=== PATIENT | male | born 1985 | race Caucasian/White ===

== ENCOUNTER 2017-05-05 03:22 | Emergency (ER) | payer MEDICARE, MEDICAID ==
[~2017-05-05] VITALS: Ht 182.9 cm; Wt 136.6 kg
[~2017-05-05 03:22] MED LIST: BENZ2TAB7 PO; CLON0.1T20 PO; CLON0.2T PO; CLON0.5T4 PO; COL100C PO; LAMO150T PO; NICO-687 TD; OLAN10TA19 PO; PRAZ1CAP5 PO; VENL150T3 PO; ZOLP5TAB8 PO
[2017-05-05 04:23] LABS: BASOPHILS % (AUTO) 0.2 % (0-1); EOSINOPHILS # (AUTO) 0.2 X10'3 (0-0.9); EOSINOPHILS % (AUTO) 1.8 % (0-6); HEMATOCRIT 42.9 % (42.0-52.0); HEMOGLOBIN 14.7 g/dl (14.0-17.9); LYMPHOCYTES # (AUTO) 3.3 X10'3 (1.1-4.8); LYMPHOCYTES % (AUTO) 26.1 % (21-51); MEAN CORPUSCULAR HEMOGLOBIN 29.7 PG (27.0-31.0); MEAN CORPUSCULAR HGB CONC 34.3 % (33.0-36.5); MEAN CORPUSCULAR VOLUME 86.6 FL (78-98); MEAN PLATELET VOLUME 7.2 FL (7.4-10.4); MONOCYTES # (AUTO) 0.6 X10'3 (0-0.9); MONOCYTES % (AUTO) 4.9 % (2-12); NEUTROPHILS # (AUTO) 8.6 X10'3 (1.8-7.7); PLATELET COUNT 307 X10'3 (140-440); RED BLOOD COUNT 4.95 X10'6 (4.70-6.10); RED CELL DISTRIBUTION WIDTH 12.6 % (11.5-14.5); WHITE BLOOD COUNT 12.8 X10'3 (4.5-11.0)
[2017-05-05 04:37] LABS: URINE AMPHETAMINE SCREEN NEGATIVE (Neg); URINE BARBITUATE SCREEN NEGATIVE (Neg); URINE BENZODIAZEPINES SCREEN NEGATIVE (Neg); URINE CANNABINOID SCREEN POSITIVE (Neg); URINE COCAINE SCREEN NEGATIVE (Neg); URINE METHADONE SCREEN NEGATIVE (Neg); URINE OPIATE SCREEN NEGATIVE (Neg); URINE PHENCYCLIDINE SCREEN NEGATIVE (Neg)
[2017-05-05 04:46] LABS: ALANINE AMINOTRANSFERASE 45 U/L (12-78); ALBUMIN/GLOBULIN RATIO 1.3 (1.1-1.5); ALKALINE PHOSPHATASE 67 IU/L (46-116); ANION GAP 8 (8-16); ASPARTATE AMINO TRANSFERASE 13 U/L (10-37); BILIRUBIN,TOTAL 0.1 MG/DL (0.1-1.0); BLOOD UREA NITROGEN 9 MG/DL (7-18); CALCIUM 8.9 MG/DL (8.5-10.1); CHLORIDE 107 MMOL/L (99-107); ETHANOL < 0.010 GM/DL (0.0-0.010); GLUCOSE 141 MG/DL (70-104); POTASSIUM 3.6 MMOL/L (3.5-5.1); SODIUM 142 MMOL/L (135-145); TOTAL CARBON DIOXIDE 27.3 MMOL/L (24-32); TOTAL PROTEIN 7.2 G/DL (6.4-8.2); eGFR > 90 ML/MIN
[2017-05-05 09:48] VITALS: BP 156/108
== END 2017-05-05 09:00 | disposition home or self-care (01) ==
LOC: ER 03:23
DX: F32.9 Major depressive disorder, single episode, unspecified (principal); G43.909 Migraine, unspecified, not intractable, without status migrainosus; I10 Essential (primary) hypertension; G89.29 Other chronic pain; F41.9 Anxiety disorder, unspecified; Z56.0 Unemployment, unspecified
CPT/HCPCS: 36415; 80053; 80305; 80320; 84443; 85025; 99284

== ENCOUNTER 2017-10-10 19:05 | Emergency (ER) | payer MEDICARE, MEDICAID ==
[~2017-10-10] VITALS: Ht 180.3 cm; Wt 129.1 kg
[~2017-10-10 19:05] MED LIST changes: +CLON0.5T12 PO; -CLON0.5T4 PO
[2017-10-10 19:08] VITALS: BP 143/89
[2017-10-10] MEDS ORDERED: PENI-88 PO (23:13)
[2017-10-10] MEDS ORDERED: TRAM50TA2 PO (23:13)
[2017-10-10] MEDS ORDERED: ANBESOL TP (23:15)
[2017-10-13] MEDS ORDERED: TRAM50TA2 PO (20:28)
[2017-10-13] MEDS ORDERED: PENI500T2 PO (20:28)
== END 2017-10-10 23:28 | disposition home or self-care (01) ==
LOC: ER 19:06
DX: K02.9 Dental caries, unspecified (principal); G43.909 Migraine, unspecified, not intractable, without status migrainosus; I10 Essential (primary) hypertension; G89.29 Other chronic pain; Z88.8 Allergy status to other drugs, medicaments and biological substances; Z79.899 Other long term (current) drug therapy; Z56.0 Unemployment, unspecified
CPT/HCPCS: 99283

== ENCOUNTER 2017-11-12 14:04 | Emergency (ER) | payer MEDICARE, MEDICAID ==
[~2017-11-12] VITALS: Ht 182.9 cm; Wt 127.3 kg
[~2017-11-12 14:04] MED LIST changes: +PENI500T2 PO; +TRAM50TA2 PO
[2017-11-12 14:32] VITALS: BP 109/69
[2017-11-12] MEDS ORDERED: ZOLP10TA PO (14:41)
[2017-11-12] MEDS ORDERED: ALBU6.7H INH (14:41)
[2017-11-12] MEDS ORDERED: CLON-527 PO (14:41)
== END 2017-11-12 14:57 | disposition home or self-care (01) ==
LOC: ER 14:04
DX: F41.9 Anxiety disorder, unspecified (principal); I10 Essential (primary) hypertension; G43.909 Migraine, unspecified, not intractable, without status migrainosus; G89.29 Other chronic pain; Z76.0 Encounter for issue of repeat prescription; Z56.0 Unemployment, unspecified; Z88.8 Allergy status to other drugs, medicaments and biological substances; Z79.899 Other long term (current) drug therapy
CPT/HCPCS: 99283

== ENCOUNTER 2017-11-16 23:54 | Emergency (ER) | payer MEDICARE, MEDICAID ==
[~2017-11-16] VITALS: Ht 182.9 cm; Wt 128.0 kg
[~2017-11-16 23:54] MED LIST changes: +ALBU6.7H INH; +CLON-527 PO; -PENI500T2 PO; -TRAM50TA2 PO; +ZOLP10TA PO
[2017-11-17 00:17] VITALS: BP 152/46
[2017-11-17] MEDS ORDERED: ketorolac trometh. 30mg/ml inj. IV ONE (00:20)
[2017-11-17] MEDS ORDERED: acetaminophen 325mg tablet PO ONE (00:20)
[2017-11-17] MEDS ORDERED: normal saline 1000ml 1,000 ML IV ONE (00:20)
[2017-11-17] MEDS ORDERED: proCHLORperazine 10 MG/2 ml inj IV ONE (00:20)
== END 2017-11-17 01:20 | disposition home or self-care (01) ==
LOC: ER 23:54
DX: G43.909 Migraine, unspecified, not intractable, without status migrainosus (principal); I10 Essential (primary) hypertension; G89.29 Other chronic pain; H53.149 Visual discomfort, unspecified; Z56.0 Unemployment, unspecified; Z88.8 Allergy status to other drugs, medicaments and biological substances; Z79.899 Other long term (current) drug therapy
CPT/HCPCS: 96374; 96375; 99284; J0780; J1885; J7030

== ENCOUNTER 2017-11-21 23:05 | Emergency (ER) | payer MEDICARE, MEDICAID ==
[~2017-11-21] VITALS: Ht 182.9 cm; Wt 127.6 kg
[2017-11-21] MEDS ORDERED: ONDA4TAB9 SL (23:35)
[2017-11-21 23:57] VITALS: BP 124/67
== END 2017-11-22 | disposition home or self-care (01) ==
LOC: ER 23:05
DX: F41.9 Anxiety disorder, unspecified (principal); R11.2 Nausea with vomiting, unspecified; G43.909 Migraine, unspecified, not intractable, without status migrainosus; I10 Essential (primary) hypertension; G89.29 Other chronic pain; Z56.0 Unemployment, unspecified; Z88.8 Allergy status to other drugs, medicaments and biological substances; Z79.899 Other long term (current) drug therapy
CPT/HCPCS: 99284

== ENCOUNTER 2017-12-11 03:32 | Emergency (ER) | payer MEDICARE, MEDICAID ==
[~2017-12-11] VITALS: Ht 182.9 cm; Wt 127.0 kg
[2017-12-11] MEDS ORDERED: ketorolac trometh. 30mg/ml inj. IV ONE (04:00)
[2017-12-11] MEDS ORDERED: metoclopramide 5 mg/ml inj IV ONE (04:00)
[2017-12-11] MEDS ORDERED: diphenhydrAMINE 50 mg/ml inj IV ONE (04:00)
[2017-12-11 05:01] VITALS: BP 121/69
== END 2017-12-11 05:18 | disposition home or self-care (01) ==
LOC: ER 03:32
DX: G43.909 Migraine, unspecified, not intractable, without status migrainosus (principal); I10 Essential (primary) hypertension; G89.29 Other chronic pain; Z56.0 Unemployment, unspecified; Z88.8 Allergy status to other drugs, medicaments and biological substances; Z79.899 Other long term (current) drug therapy
CPT/HCPCS: 96374; 96375; 99284; J1200; J1885; J2765

== ENCOUNTER 2018-03-12 21:30 | Emergency (ER) | payer MEDICARE, MEDICAID ==
[~2018-03-12] VITALS: Ht 182.9 cm; Wt 109.2 kg
[2018-03-12 21:39] VITALS: BP 139/88
== END 2018-03-12 23:28 | disposition home or self-care (01) ==
LOC: ER 21:31
DX: R07.89 Other chest pain (principal); I10 Essential (primary) hypertension; G89.29 Other chronic pain; Z56.0 Unemployment, unspecified; Z88.8 Allergy status to other drugs, medicaments and biological substances; Z79.899 Other long term (current) drug therapy
CPT/HCPCS: 93005; 99283

== ENCOUNTER 2018-05-10 21:28 | Emergency (ER) | payer MEDICARE, MEDICAID ==
[~2018-05-10] VITALS: Ht 167.6 cm; Wt 116.8 kg
[2018-05-10] MEDS ORDERED: ketorolac trometh inj. 60 MG/2 ML VIAL IM ONE (21:55)
[2018-05-10] MEDS ORDERED: NYST1000 PO (21:55)
[2018-05-10] MEDS ORDERED: DICL50TA8 PO (21:55)
[2018-05-10 22:11] VITALS: BP 145/87
== END 2018-05-10 22:13 | disposition home or self-care (01) ==
LOC: ER 21:29
DX: R07.89 Other chest pain (principal); B37.9 Candidiasis, unspecified; R42 Dizziness and giddiness; R11.0 Nausea; I10 Essential (primary) hypertension; G43.909 Migraine, unspecified, not intractable, without status migrainosus; G89.29 Other chronic pain; Z88.8 Allergy status to other drugs, medicaments and biological substances; Z79.899 Other long term (current) drug therapy; Y04.0XXA Assault by unarmed brawl or fight, initial encounter; Y93.89 Activity, other specified; Y92.89 Other specified places as the place of occurrence of the external cause; Y99.8 Other external cause status
CPT/HCPCS: 71045; 93005; 96372; 99283; J1885

== ENCOUNTER 2018-07-10 16:12 | Emergency (ER) | payer MEDICARE, MEDICAID ==
[~2018-07-10] VITALS: Ht 182.9 cm; Wt 137.7 kg
[~2018-07-10 16:12] MED LIST changes: +DICL50TA8 PO
[2018-07-10] MEDS ORDERED: MAGN296S50 PO (19:10)
[2018-07-10] MEDS ORDERED: BISA10SU60 RC (19:10)
[2018-07-10 19:16] VITALS: BP 126/76
== END 2018-07-10 19:22 | disposition home or self-care (01) ==
LOC: ER 16:13
DX: K59.00 Constipation, unspecified (principal); R11.0 Nausea; G43.909 Migraine, unspecified, not intractable, without status migrainosus; I10 Essential (primary) hypertension; G89.29 Other chronic pain; Z88.8 Allergy status to other drugs, medicaments and biological substances; Z79.899 Other long term (current) drug therapy; Z56.0 Unemployment, unspecified
CPT/HCPCS: 99282

== ENCOUNTER 2019-10-15 15:50 | Emergency (ER) | payer MEDICARE, MEDICAID ==
[~2019-10-15] VITALS: Ht 182.9 cm; Wt 133.6 kg
[~2019-10-15 15:50] MED LIST changes: -ALBU6.7H INH; +ALBU6.7H9 INH; +BISA10SU60 RC; +CLON0.1T2 PO; -CLON0.1T20 PO; -CLON0.5T12 PO; +CLON0.5T4 PO; -LAMO150T PO; +LAMO150T6 PO; +LORA-269 PO; +MAGN296S70 PO; +ONDA4TAB6 PO
[2019-10-15] MEDS ORDERED: LIDOcaine 1% W/epiNEPHrine 1:200,000 10ml vial IJ ONE (16:15)
[2019-10-15] MEDS ORDERED: normal saline 1000ML IV soln IVB ONE (16:15)
[2019-10-15 16:39] LABS: BASOPHILS # (AUTO) 0.1 X10'3 (0-0.2); BASOPHILS % (AUTO) 0.5 % (0-1); EOSINOPHILS # (AUTO) 0.3 X10'3 (0-0.9); EOSINOPHILS % (AUTO) 2.6 % (0-6); HEMATOCRIT 39.8 % (42.0-52.0); HEMOGLOBIN 13.6 g/dl (14.0-17.9); LYMPHOCYTES # (AUTO) 2.4 X10'3 (1.1-4.8); LYMPHOCYTES % (AUTO) 21.5 % (21-51); MEAN CORPUSCULAR HEMOGLOBIN 29.3 PG (27.0-31.0); MEAN CORPUSCULAR HGB CONC 34.2 g/dL (33.0-36.5); MEAN CORPUSCULAR VOLUME 85.8 FL (78-98); MEAN PLATELET VOLUME 7.6 FL (7.4-10.4); MONOCYTES # (AUTO) 0.8 X10'3 (0-0.9); NEUTROPHILS # (AUTO) 7.7 X10'3 (1.8-7.7); NEUTROPHILS % (AUTO) 68.4 % (42-75); PLATELET COUNT 279 X10'3 (140-440); RED BLOOD COUNT 4.64 X10'6 (4.70-6.10); RED CELL DISTRIBUTION WIDTH 12.8 % (11.5-14.5); WHITE BLOOD COUNT 11.2 X10'3 (4.5-11.0)
[2019-10-15 16:53] LABS: ALANINE AMINOTRANSFERASE 31 U/L (12-78); ALBUMIN 3.9 G/DL (3.4-5.0); ALBUMIN/GLOBULIN RATIO 1.2 (1.1-1.5); ALKALINE PHOSPHATASE 79 IU/L (46-116); ANION GAP 7 (8-16); ASPARTATE AMINO TRANSFERASE 20 U/L (10-37); BILIRUBIN,TOTAL 0.3 MG/DL (0.1-1.0); BLOOD UREA NITROGEN 12 MG/DL (7-18); BUN/CREATININE RATIO 9.9 (5.4-32.0); CALCIUM 8.9 MG/DL (8.5-10.1); CHLORIDE 108 MMOL/L (99-107); CREATININE 1.21 MG/DL (0.60-1.10); GLUCOSE 140 MG/DL (70-104); POTASSIUM 4.2 MMOL/L (3.5-5.1); SODIUM 143 MMOL/L (135-145); TOTAL CARBON DIOXIDE 27.9 MMOL/L (24-32); TOTAL PROTEIN 7.2 G/DL (6.4-8.2); eGFR 69 ML/MIN
[2019-10-15 18:14] VITALS: BP 109/65
== END 2019-10-15 18:21 | disposition home or self-care (01) ==
LOC: ER 15:51
DX: S01.81XA Laceration without foreign body of other part of head, initial encounter (principal); S09.90XA Unspecified injury of head, initial encounter; R55 Syncope and collapse; R42 Dizziness and giddiness; G43.909 Migraine, unspecified, not intractable, without status migrainosus; I10 Essential (primary) hypertension; F41.9 Anxiety disorder, unspecified; F32.9 Major depressive disorder, single episode, unspecified; Z56.0 Unemployment, unspecified; Z88.8 Allergy status to other drugs, medicaments and biological substances; Z79.899 Other long term (current) drug therapy; W19.XXXA Unspecified fall, initial encounter; Y93.89 Activity, other specified; Y92.89 Other specified places as the place of occurrence of the external cause; Y99.8 Other external cause status
CPT/HCPCS: 12013; 36415; 70450; 80053; 85025; 96360; 99284; J7030

== ENCOUNTER 2019-10-20 17:27 | Emergency (ER) | payer MEDICARE, MEDICAID ==
[~2019-10-20] VITALS: Ht 182.9 cm; Wt 131.8 kg
[2019-10-20 17:30] VITALS: BP 112/65
--- NOTE | 2019-10-20 18:49 | NUR ---
REMOVED ONE SUTURE
== END 2019-10-20 18:55 | disposition home or self-care (01) ==
LOC: ER 17:28
DX: S01.81XD Laceration without foreign body of other part of head, subsequent encounter (principal); G43.909 Migraine, unspecified, not intractable, without status migrainosus; I10 Essential (primary) hypertension; G89.29 Other chronic pain; F41.9 Anxiety disorder, unspecified; F32.9 Major depressive disorder, single episode, unspecified; F19.90 Other psychoactive substance use, unspecified, uncomplicated; Z56.0 Unemployment, unspecified; Z88.8 Allergy status to other drugs, medicaments and biological substances; Z79.899 Other long term (current) drug therapy; X58.XXXD Exposure to other specified factors, subsequent encounter
CPT/HCPCS: 99281